=== PATIENT | female | born 1955 | race Caucasian/White ===

== ENCOUNTER 2020-10-24 15:05 | Outpatient (CLI) | payer OTHER, SELFPAY ==
--- NOTE | 2020-10-24 15:45 | USCV_ITS ---
Ana Miranda Age: 65 Gender: F : 1955 Exam Date: 10/24/2020 15:32 Ordering Phys: Tangela Villalba NP Technologist: Deanna Canseco Exam Location: [facility] Indication: CHEST PAIN BP: 102 / 68 HR: 96 Rhythm: Sinus Technical Quality: Good MEASUREMENTS (Male / Female) Normal Values 2D ECHO LV Diastolic Diameter PLAX 3.8 cm 4.2 - 5.9 / 3.9 - 5.3 cm LV Systolic Diameter PLAX 1.9 cm IVS Diastolic Thickness 0.9 cm 0.6 - 1.0 / 0.6 - 0.9 cm IVS Systolic Thickness 1.3 cm LVPW Diastolic Thickness 0.8 cm 0.6 - 1.0 / 0.6 - 0.9 cm LVPW Systolic Thickness 1.5 cm LVOT Diameter 2.0 cm LV Ejection Fraction 2D Teich 83.1 % LV Ejection Fraction MOD 2C 57.4 % LV Ejection Fraction 2C AL 56.4 % LA Diameter 2.3 cm LA Width 3.3 cm LA Height 3.3 cm RA Width 2.8 cm RA Height 3.6 cm Aorta at Sinotubular Diameter 3.7 cm M-MODE LV Diastolic Diameter MM 4.2 cm 4.2 - 5.9 / 3.9 - 5.3 cm LV Systolic Diameter MM 2.1 cm LV Ejection Fraction MM Teich 81.5 % IVS Diastolic Thickness MM 0.6 cm 0.6 - 1.0 / 0.6 - 0.9 cm IVS Systolic Thickness MM 1.0 cm LVPW Diastolic Thickness MM 0.6 cm 0.6 - 1.0 / 0.6 - 0.9 cm LVPW Systolic Thickness MM 1.3 cm Aortic Annulus Diameter 3.3 cm LA Ao Ratio MM 0.7 MV E Point Septal Separation 0.3 cm DOPPLER AV Peak Velocity 106.0 cm/s LVOT Peak Velocity 111.0 cm/s AV Area Cont Eq vti 3.1 cm squared AV Area Cont Eq pk 3.3 cm squared MV Peak Velocity 167.0 cm/s MV Area PHT 3.5 cm squared Mitral E to A Ratio 0.9 MV E' Velocity 39.0 cm/s Mitral E to MV E' Ratio 7.4 Mitral E to LV E' Lateral Ratio 8.1 Mitral E to LV E' Septal Ratio 6.8 TR Peak Velocity 225.1 cm/s TR Peak Gradient 20.3 mmHg TR Mean Velocity 133.9 cm/s TR Mean Gradient 8.2 mmHg TR Velocity Time Integral 27.4 cm Right Atrial Pressure 3.0 mmHg Pulmonary Artery Systolic Pressu 23.3 mmHg PV Peak Velocity 111.0 cm/s RV Acceleration Time 0.1 s RV Ejection Time 0.2 s RV AcT/ET 0.4 FINDINGS Left Ventricle Normal left ventricular size. LV systolic function is normal with EF of 60-65%. No regional wall motion abnormalities. Normal diastolic filling pattern. Right Ventricle The right ventricle is normal in size and function. Right Atrium The right atrium is normal in size. Left Atrium The left atrium is normal in size. Mitral Valve Structurally normal mitral valve without significant stenosis or prolapse. There is trace mitral regurgitation. Aortic Valve Structurally normal aortic valve without significant sclerosis or stenosis. There is mild to moderate aortic regurgitation. Tricuspid Valve Structurally normal tricuspid valve without significant stenosis or regurgitation. Insufficient TR jet to calculate RVSP Pulmonic Valve Structurally normal pulmonic valve without significant stenosis. There is no pulmonic regurgitation. Pericardium Normal pericardium without effusion. Aorta Mildly dilated aortic root CONCLUSIONS LV systolic function is normal with EF of 60-65% Diastolic function is normal Trace mitral regurgitation Mild to moderate aortic regurgitation Mildly dilated aortic root No comparison studies are available Anderson Sandoval MD (Electronically Signed) Final Date: 27 October 2020 13:45 S
== END 2020-10-24 15:06 | disposition home or self-care (01) ==
LOC: RAD 15:12
PROVIDERS: PCP Nurse Practitioner Family; Visit Provider Nurse Practitioner Family
DX: I49.9 Cardiac arrhythmia, unspecified (principal); R07.9 Chest pain, unspecified; I08.0 Rheumatic disorders of both mitral and aortic valves
CPT/HCPCS: 93306

== ENCOUNTER 2020-11-28 08:46 | Outpatient (CLI) | payer OTHER, SELFPAY ==
--- NOTE | 2020-11-28 08:52 | US_ITS ---
WS: [id number] ULTRASOUND PELVIS TECHNIQUE: Transabdominal and transvaginal. ULTRASOUND PELVIS TECHNIQUE: Transabdominal. CLINICAL INFORMATION: CYSTOCELE LMP: : No. COMPARISON: None. FINDINGS: Uterus Orientation: Anteverted. Size: 6.1 cm x 5.2 cm x 2.8 cm. Masses: Fibroid anterior dorsal fundus measuring 1.4 x 0.8 x 1.5 cm Prominent pelvic varicosities can be seen with pelvic congestion syndrome in the appropriate clinical setting Cervix: cm. Endometrium: Normal. Endometrium thickness: 0.19 cm. Adnexa: Normal. Right ovary size: 2.0 cm x 1.9 cm x 1.4 cm. Right ovary volume: 2.7 ccm3. Left ovary size: 2.0 cm x 0.8 cm x 1.8 cm. Left ovary volume: 1.5 ccm3 Free fluid: Trace free fluid in the cul-de-sac. Other findings: Normal bladder. No visualized cystocele. US/US pelvic with transvaginal IMPRESSION: 1. No bladder cystocele visualized. 2. Fibroid anterior dorsal fundus measuring 1.4 x 0.8 x 1.5 cm 3. Adnexa are normal. Normal ovaries. 4. Normal endometrium measuring 1.9 mm 5. Prominent pelvic varicosities can be seen with pelvic congestion syndrome in the appropriate clinical setting
--- NOTE | 2020-11-28 08:52 | US_ITS ---
WS: [id number] ULTRASOUND ABDOMEN CLINICAL INFORMATION: CYSTOCELE COMPARISON: None. FINDINGS: Liver Size: Normal. Craniocaudal length: 15.2 cm. Echogenicity: Normal. Surface nodularity: None. Mass (size and location): None. Bile ducts Intrahepatic ducts: Normal. Common bile duct diameter: 0.3 cm. Gallbladder Gallbladder is contracted. Cholelithiasis. Gallstones: Present Gallbladder sludge: None. Gallbladder wall thickening: None. Pericholecystic fluid: None. Sonographic Zaho sign: Absent. Pancreas Normal as visualized. Spleen Splenomegaly: None. Craniocaudal length: 7.0 cm. Right kidney: Small right renal cyst with a thin septation measuring 11 x 13 mm Hydronephrosis: None. Size: 9.2 cm x 3.7 cm x 4.8 cm Left kidney: Dilated left renal pelvis or parapelvic cyst measuring 1.6 x 1.6 x 1.1 cm Hydronephrosis: None. Size: 9.0 cm x 4.5 cm x 4.7 cm. Abdominal aorta and IVC Visualized portions are normal. Ascites: None. US/US abdomen complete* [id number] IMPRESSION: 1. Normal liver 2. Cholelithiasis. Gallbladder is contracted. No gallbladder wall thickening 3. Normal common bile duct 4. Small right renal cyst with a thin septation measuring 11 x 13 mm 5. Dilated left renal pelvis or parapelvic cyst measuring 1.6 x 1.6 x 1.1 cm
== END 2020-11-28 08:47 | disposition home or self-care (01) ==
LOC: RAD 08:47
PROVIDERS: PCP Nurse Practitioner Family; Visit Provider Nurse Practitioner Family
DX: N81.10 Cystocele, unspecified (principal); D25.9 Leiomyoma of uterus, unspecified
CPT/HCPCS: 76700; 76830; 76856

== ENCOUNTER → 2021-06-20 15:44 | Outpatient (BNVA) | payer MEDICARE, OTHER, SELFPAY | PROVIDERS: Referring Provider Nurse Practitioner Family; Visit Provider Obstetrics & Gynecology | DX: Z12.4 Encounter for screening for malignant neoplasm of cervix (principal) | CPT/HCPCS: 87624 ==